=== PATIENT | female | born 1950 | race Caucasian/White ===

== ENCOUNTER 2017-01-20 21:11 | Emergency (ER) | payer OTHER ==
[~2017-01-20] VITALS: Ht 162.6 cm; Wt 86.2 kg
[~2017-01-20 21:11] MED LIST: ALBUTEROL0.09 MG/A1 INH; AMOXICILLIN500 MG PO; BLEPH-10 5 ML5 ML OS; CARAFATE1 GM/10 ML PO; COLACE100 MG PO; DOK100 MG PO; FERROUS SULFAT325 M3 PO; FLOMAX0.4 M1 PO; HYDROMORPHONE HC2 MG PO; LEXAPRO 10MG10 MG PO; LORTAB PO; MOTRIN800 MG PO; NEXIUM 40MG40 MG PO; NEXIUM20 M1 PO; PERCOCET 325 MG1 TA2 PO; PERCOCET 5-3251 EACH PO; PREDNISONE 20MG20 MG PO; TESSALON PERLE100 MG PO
[2017-01-20 21:53] LABS: ABSOLUTE BASOPHIL COUNT 0 /CUMM (0.0-0.2); ABSOLUTE EOSINOPHIL COUNT 0.2 /CUMM (0.0-0.7); ABSOLUTE GRANULOCYTE CT 2.3 /CUMM (1.4-6.5); ABSOLUTE LYMPH COUNT 2.9 /CUMM (1.2-3.4); ABSOLUTE MONOCYTE COUNT 0.6 /CUMM (0.10-0.60); BASOPHIL % 0.6 % (0.0-2.0); EOSINOPHIL % 3.7 % (0-5); GRANULOCYTE % 37.8 % (42.2-75.2); HEMATOCRIT 38.9 % (37-47); MEAN CORPUSCULAR HGB 31.4 PG (27.0-31.0); MEAN CORPUSCULAR VOLUME 92.6 FL (81.0-99.0); MEAN PLATELET VOLUME 9.6 FL (7.4-10.4); PLATELET COUNT 165 /CUMM (130-400); RBC DISTRIBUTION WIDTH 12.6 % (11.5-14.5); WHITE BLOOD CELL COUNT 5.9 /CUMM (4.8-10.8)
--- NOTE | 2017-01-21 01:07 | ED CARDIAC/CP/PALPITATIONS ---
History of Present Illness General Chief Complaint: General Adult Stated Complaint: CHEST TIGHTNESS, ABD PAIN Vital Signs & Intake/Output Vital Signs & Intake/Output Vital Signs Date Time Temp Pulse Resp B/P B/P Pulse O2 O2 Flow FiO2 Mean Ox Delivery Rate 01/21 0009 96.4 74 18 160/91 98 Room Air 01/20 2121 97.3 96 18 172/95 96 Room Air ED Intake and Output 01/21 0000 01/20 1200 Intake Total Output Total Balance Patient 190 lb Weight Weight Reported by Patient Measurement Method Allergies Coded Allergies: No Known Allergies (03/28/16) Triage Note: PT TO TRIAGE WITH C/O LOWER ABD PAIN 10/10 WITH BM DIARRHEA xFEW WEEKS, ALSO INTERMITTENT CHEST PAIN / AND SOB xFEW WEEKS. PT DENIES N/V,DENIES URINARY S/S. VSS. EKG DONE IN TRIAGE. HX OF HTN,HIGH CHOL,GERD,HIATAL HERNIA. Triage Nurses Notes Reviewed? yes HPI: Ms. Gray is a 65 yo f w/ PMH HTN, HLD, MAEGAN, GERD, hiatal hernia, fatty liver disease, nephrolithiasis, OA and anxiety presenting to the ED for feeling ill. Patient states she's been feeling quite ill for the past 3-4 weeks. She has intermittent abdominal pain that comes and goes. She's also been having several episodes of diarrhea, she had 5 today. She's had diarrhea for the past 3-4 weeks not daily but intermittent. Patient endorses some nausea and subjective fevers and chills. No episodes of vomiting. She also endorses some episodes of chest pain that have been ongoing for the past 2-3 weeks. They are not related to exertion. She does not have any chest pain at this point in time. No cough or shortness of breath. (SOFI NEFF,ANNELIESE) General Source: patient Exam Limitations: no limitations Reconcile Medications Diphenoxylate HCl/Atropine (Lomotil 2.5-0.025 MG Tablet) 2.5 MG-0.025 MG TABLET 1 TAB PO 4 TIMES/DAY DIARRHEA FIFTEEN...[id number] Esomeprazole Magnesium (Nexium) 20 MG CAPSULE.DR 1 CAP PO DAILY GI (Reported) Ferrous Sulfate 325 MG TABLET 1 TAB PO DAILY IRON SUPPLEMENT (Reported) Tamsulosin HCl (Flomax) 0.4 MG CAP.ER.24H 1 CAP PO DAILY KIDNEY STONES ( Reported) (CHELSEY IZAGUIRRE MD) Past History Travel History Traveled to [place] past 21 day No Medical History Neurological: NONE EENT: NONE Cardiovascular: hypertension, hyperlipidemia Respiratory: bronchitis, SLEEP APNEA Gastrointestinal: GERD, hiatal hernia Hepatic: FATTY LIVER Renal: KIDNEY STONES Musculoskeletal: osteoarthritis Psychiatric: anxiety Endocrine: NONE Blood Disorders: NONE Cancer(s): NONE History of MRSA: No History of VRE: No History of CDIFF: No Surgical History Surgical History: hernia repair-inguinal (BILATERAL) Psychosocial History Who do you live with Patient/Self What is your primary language Omani Tobacco Use: Never used Family History Hx Contributory? No (ANNELIESE FARAH MD) Medical History Any Pertinent Medical History? see below for history (CHELSEY IZAGUIRRE MD) Review of Systems Review of Systems Constitutional: Reports: see HPI. EENTM: Reports: no symptoms. Respiratory: Reports: no symptoms. Cardiovascular: Reports: chest pain. GI: Reports: abdominal pain, diarrhea, nausea. Genitourinary: Reports: frequency. Musculoskeletal: Reports: no symptoms. Skin: Reports: no symptoms. Neurological/Psychological: Reports: no symptoms. Hematologic/Endocrine: Reports: no symptoms. Immunologic/Allergic: Reports: no symptoms. All Other Systems: Reviewed and Negative (ANNELIESE FARAH MD) Physical Exam Physical Exam Cardiovascular: regular rate/rhythm Comments: Well-developed well-nourished person in no acute distress HEENT: Normal EENT exam; PERRL, EOMI, no nystagmus. HEAD is atraumatic. moist mucous membranes. Neck: Supple, no lymphadenopathy, normal range of motion without pain or tenderness Back: Nontender, no CVA tenderness. Full range of motion Cardiovascular: Regular rate and rhythms, no murmurs, rubs or gallops, normal JVP Respiratory: Chest nontender.There were no bony deformities, no asymmetry. No respiratory distress. Patient speaking in full complete sentences. Breath sounds clear to auscultation bilaterally: NO W/R/R Abdomen: + RUQ and + LLQ TTP. Soft, nondistended, no appreciable organomegaly. Normal bowel sounds. No rebound/guarding, No appreciable enlargement of the abdominal aorta, No ascites. Extremity: No edema, full range of motion of extremities, normal and equal pulses bilaterally, 5 out of 5 strength noted to bilateral upper and lower extremities Neuro: Alert oriented x3, motor sensory normal, cranial nerves II through XII grossly intact. There were no obvious focal neurologic abnormalities. Skin: No appreciable rash on exposed skin, skin is warm and dry. Psych: Mood and affect is normal, memory and judgment is normal. (SOFI NEFF,ANNELIESE) Core Measures ACS in differential dx? No Severe Sepsis Present: No Septic Shock Present: No (ELI NEFF,CHELSEY Zafar) Progress Differential Diagnosis: cholecystitis, musculoskeletal pain, pancreatitis, PUD/ GERD, diverticulitis, ACS Plan of Care: Orders Procedure Date/time Status URINALYSIS 01/20 2245 Complete Add-on Test (ER Only) 01/20 2205 Active Add-on Test (ER Only) 01/20 2147 Active TROPONIN LEVEL 01/20 2127 Complete LIPASE 01/20 2127 Complete AMYLASE 01/20 2127 Complete COMPREHENSIVE METABOLIC PANEL 01/21 2120 Complete CBC WITHOUT DIFFERENTIAL 01/21 2120 Complete EKG 01/21 2112 Active Laboratory Tests 01/21/17 0050: Urine Color YEL, Urine Clarity CLEAR, Urine pH 6.0, Ur Specific [place] 1.015, Urine Protein NEG, Urine Ketones NEG, Urine Nitrite NEG, Urine Bilirubin NEG, Urine Urobilinogen 0.2, Ur Leukocyte Esterase NEG, Ur Microscopic EXAM NOT REQUIRED, Urine Hemoglobin NEG, Urine Glucose NEG 01/20/172126: Anion Gap 11, Estimated GFR > 60, BUN/Creatinine Ratio 17.8, Glucose 101 H, Calcium 9.0, Total Bilirubin 0.5, AST 85 H, ALT 92 H, Alkaline Phosphatase 68, Troponin I < 0.01, Total Protein 7.3, Albumin 4.1, Globulin 3.2, Albumin/ Globulin Ratio 1.3, Amylase 58, Lipase 173, CBC w Diff NO MAN DIFF REQ, RBC 4.20 , MCV 92.6, MCH 31.4 H, RDW 12.6, MPV 9.6, Gran % 37.8 L, Lymphocytes % 48.5, Monocytes % 9.4 H, Eosinophils % 3.7, Basophils % 0.6, Absolute Granulocytes 2.3, Absolute Lymphocytes 2.9, Absolute Monocytes 0.6, Absolute Eosinophils 0.2, Absolute Basophils 0, PUBS MCHC 34.0 Patient is 66 years old coming in with abdominal pain as well as intermittent episodes of chest pain. No chest pain at this point in time. Patient's vitals are unremarkable. She does have some mild right upper quadrant tenderness on palpation. Basic labs are essentially within normal limits. Mildly elevated AST and ALT. Patient does not have any chest pain at this point in time however she says it's been coming on and off. First EKG is nonischemic. Troponin is negative. We'll obtain CT to assess for possibility cholecystitis. Is also possible with ongoing diarrhea that the patient has diverticulitis. Patient signed out to Dr. Izaguirre pending CT scan. (SOFI NEFF,ANNELIESE) Diagnostic Imaging: Viewed by Me: CT Scan. Discussed w/RAD: CT Scan. Initial ED EKG: normal axis, normal intervals, normal p-waves, normal QRS complex, normal sinus rhythm, wandering baseline (SOFI NEFF,ANNELIESE) Radiology Impression: abd/pelvic ct... no acute change... diverticulosis w/o diverticulitis, fatty liver, non obstructive stone... full report below. Comments: PATIENT: ISI GRAY PRESENT AGE: 66 PATIENT ACCOUNT NO: [id number] : 51 LOCATION: [facility] ORDERING PHYSICIAN: ANNELIESE FARAH MD SERVICE DATE: 01/20/17 EXAM TYPE: CAT - CT ABD & PELVIS W IV CONTRAST EXAMINATION: CT ABDOMEN AND PELVIS WITH CONTRAST CLINICAL INFORMATION: Right upper quadrant pain. COMPARISON: May 13, 2016. TECHNIQUE: Contiguous axial thin section helical images of the abdomen and pelvis were performed following the administration of 95 mL of intravenous Optiray 320. The data set was reformatted in the coronal and sagittal planes and reviewed on an independent workstation. DLP: 577 mGy-cm. FINDINGS: The visualized lung bases are clear. The visualized portions of the heart are unremarkable. There is a moderate-sized hiatal hernia. The liver is of normal size and attenuation without focal lesions nor intrahepatic biliary ductal dilation. A normal gallbladder is identified. There is no wall thickening or discernible pericholecystic fluid. The spleen, pancreas, adrenal glands are unremarkable. Both kidneys are of normal size and attenuation without hydronephrosis. There is a 6 mm nonobstructive calculus within the upper pole the right kidney. Following the administration of IV contrast, prompt symmetric nephrograms are displayed. There is no abdominal free fluid. There is neither mesenteric nor retroperitoneal lymphadenopathy. There is sigmoid diverticulosis without evidence of diverticulitis. Otherwise, unremarkable unopacified loops of small and large bowel are identified. There is no pelvic free fluid. The urinary bladder is unremarkable. There is neither pelvic nor inguinal lymphadenopathy. Bone windows: Neither sclerotic nor lytic bone lesions are identified. Multilevel disc height loss is present within the lower thoracic and lumbar spine. IMPRESSION: No evidence for acute abdominal or pelvic inflammatory or infectious processes. Specifically, a normal gallbladder is identified. Sigmoid diverticulosis without evidence of diverticulitis. Hepatic steatosis. Nonobstructive right renal calculus. Moderate hiatal hernia. DICTATED BY: MARTI TRINH MD DATE/TIME DICTATED:01/21/1745 [employer] ADVISOR:FELIBERTO DATE/TIME TRANSCRIBED:01/21/1745 CONFIDENTIAL, DO NOT COPY WITHOUT APPROPRIATE AUTHORIZATION. <Electronically signed in Other Vendor System> SIGNED BY: MARTI TRINH MD 01/21/17 0109 (CHELSEY IZAGUIRRE MD) Departure Departure Condition: Stable Referrals: ALTHEA NEFF,MAHESH Wu (PCP/Family) Departure Forms: Customer Survey General Discharge Information (SOFI NEFF,ANNELIESE) Departure Disposition: HOME OR SELF CARE Clinical Impression Primary Impression: Abdominal pain Secondary Impressions: Diarrhea Prescriptions: Current Visit Scripts Diphenoxylate HCl/Atropine (Lomotil 2.5-0.025 MG Tablet) 1 TAB PO 4 TIMES/DAY #15 TAB FIFTEEN...[id number] Resident Co-Sign Statement Statement: ED Attending supervision documentation- [x] I saw and evaluated the patient. I have also reviewed all the pertinent lab results and diagnostic results. I agree with the findings and the plan of care as documented in the Resident's documentation. 01/21/17, 1:56am. pt comfortable in ED, with benign labs and a stable ct scan... 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 will give trial of lomotil. close follow up advised. [] I have reviewed the ED Record and agree with the Resident's documentation. [] Additions or exceptions (if any) to the Resident's note and plan are summarized below: [] (ELI NEFF,CHELSEY Zafar) Critical Care Note Critical Care Note Critical Care Time: non-applicable (ELI NEFF,CHELSEY Zafar)
[2017-01-21] MEDS ORDERED: LOMOTIL 2.5-0.1 EACH PO (01:38)
[2017-01-21 02:07] VITALS: BP 161/87
== END 2017-01-21 02:07 ==
LOC: ERH 21:11
PROVIDERS: Emergency Medicine
DX: R19.7 Diarrhea, unspecified (principal); R10.30 Lower abdominal pain, unspecified; R07.89 Other chest pain
CPT/HCPCS: 74177; 81003; 93005; 93010